=== PATIENT | male | born 1960 | race African-American/Black ===

== ENCOUNTER → 2020-01-21 | Outpatient (CLI) | payer OTHER ==
[2014-06-03 14:00] VITALS: BP 161/85
--- NOTE | 2020-01-21 08:17 | RAD ---
RENAL COMPLETE BILATERAL History: Decreased renal function Comparison: None. Findings: Multiple sonographic images of the kidneys and urinary bladder are submitted. Right kidney measured 11 x 5.3 x 6 cm, no hydronephrosis. There is a hypoechoic lesion of the superior right kidney up to 10.8 x 1.3 x 1.6 cm with minimal internal echoes and slight increased through transmission, no associated internal vascularity on color Doppler imaging. Left kidney measured 12.9 x 5.4 x 6.3 cm, no hydronephrosis. Renal cortical echogenicity is considered within normal limits. Ureteral jets are seen bilaterally in the urinary bladder lumen. Impression: 1. There is superior right renal cyst. There is no hydronephrosis of either kidney. Electronically signed by: Tommy Choudhury MD (01/21/2020 8:14 AM) [facility]
== END ==
LOC: US 06:48
PROVIDERS: ATTEND Family Medicine
DX: N28.1 Cyst of kidney, acquired (principal)
CPT/HCPCS: 76770